=== PATIENT | female | born 1995 | race Caucasian/White ===

== ENCOUNTER 2021-05-14 11:50 | Outpatient (CLI) | payer BC, SELFPAY ==
--- NOTE | 2021-05-14 11:30 | DI.RAD_ITS ---
Exam(s) XR KNEE LT 3V AP,LAT,CHUCKY EXAM: XR KNEE LT 3V AP,LAT,CHUCKY CLINICAL HISTORY: F/U. TECHNIQUE: 2D digital imaging was performed. COMPARISON: No exams were available for comparison FINDINGS: There is no evidence of fracture or prominent joint effusion. No degenerative changes. No patellar displacement. Bone density is normal. IMPRESSION: No significant radiographic findings on these three views of the left knee. DATA REPOSITORY: RADIATION DOSE DELIVERED:
== END 2021-05-14 11:51 | disposition home or self-care (01) ==
LOC: DIORS 11:51
PROVIDERS: PCP Family Medicine; Visit Provider Student in an Organized Health Care Education/Training Program
DX: M25.562 Pain in left knee (principal)
CPT/HCPCS: 73562

== ENCOUNTER 2022-04-13 13:32 | Emergency (ER) | payer OTHER, SELFPAY ==
[2022-04-13 13:35] VITALS: BP 123/73; PULSE 84; RESP 16; TEMP 36.9; O2SAT 100
--- NOTE | 2022-04-13 14:00 | DI.RAD_ITS ---
Exam(s) XR WRIST LT COMPLETE EXAM: XR WRIST LT COMPLETE CLINICAL HISTORY: trauma, left wrist pain. TECHNIQUE: 2D digital imaging was performed of the left wrist. Three images were obtained. PA, obl ique and lateral views were obtained. COMPARISON: No exams were available for comparison FINDINGS: BONES: There is an acute comminuted fracture of the distal left radius with extension into the radioc arpal joint. There is mild displacement and posterior angulation of the fracture. There is also non displaced fracture through the base of the ulnar styloid process. No bony destructive lesion is seen . JOINTS: The carpal bones are normally aligned. SOFT TISSUE: Soft tissue swelling of the wrist. IMPRESSION: Distal left radial and ulnar fractures as described above. DATA REPOSITORY: RADIATION DOSE DELIVERED:
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
--- NOTE | 2022-04-13 14:45 | DI.CT_ITS ---
Exam(s) CT UPPER EXTREMITY LT WO EXAM: CT UPPER EXTREMITY LT WO CLINICAL HISTORY: left wrist pain, trauma. TECHNIQUE: Imaging Protocol: Axial computed tomography images with coronal and sagittal reformatted images were created and reviewed. COMPARISON: No exams were available for comparison FINDINGS: Bones: There is an acute comminuted fracture of the distal radius which extends into the radiocarpal joint. There is mild impaction of the fracture noted. There is also a mildly displaced oblique fra cture through the distal ulna extending into its articular surface. No cellulitic or osteomyelitic c hanges are identified. There is no evidence of joint space narrowing or cystic degeneration seen. No lytic or sclerotic lesions are identified. Soft Tissues: There is soft tissue swelling of the wrist. IMPRESSION: Distal radial and ulnar fractures as described. RADIATION DOSE DELIVERED: 148.57mGy.cm Total DLP 148.57mGy.cm Total DLP DATA REPOSITORY: All CT scans at this facility are submitted to the National Radiology Data Registry (NRDR) Dose Index Registry (DIR) with the [employer] (ACR). RADIATION OPTIMIZATION: All CT scans at this facility use at least one of these dose optimization te chniques: automated exposure control; mA and/or kV adjustment per patient size (includes targeted exa ms where dose is matched to clinical indication); or iterative reconstruction.
--- NOTE | 2022-04-13 15:06 | DI.VRAD_ITS ---
PROCEDURE INFORMATION: Exam: XR Left Wrist Exam date and time: 04/13/2022 2:40 PM Age: 26 years old Clinical indication: Injury or trauma; Fall; Fracture, traumatic injury; Closed fracture; Wrist; Left TECHNIQUE: Imaging protocol: XR Left wrist. Views: 3 or more views. COMPARISON: No relevant prior studies available. FINDINGS: Bones/joints: Comminuted intra-articular transverse fracture of the distal radial metaphysis. There is mild impaction and dorsal angulation of the distal fracture fragments. Small minimally displaced fracture of the ulnar epiphysis. No other acutely displaced fractures are identified. There is no evidence of joint dislocation. No aggressive osseous lesions. Soft tissues: There is soft tissue swelling. IMPRESSION: 1. Comminuted, intra-articular, transverse, and dorsally angulated fracture of the distal radial metaphysis. 2. Small minimally displaced fracture to the ulnar epiphysis. 3. Significant soft tissue swelling. Dictated and Authenticated by: Walter Stone MD. Ordering:MATILDA Sloan MD
[2022-04-13] MEDS: Acetaminophen 500 MG TAB 1000 MG PO (15:45)
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
[2022-04-13] MEDS: Ketorolac 15 MG/ML VIAL IM (17:12)
[2022-04-13 17:43] LABS: Source Nasopharynx
[2022-04-13 17:47] VITALS: BP 115/60; PULSE 71; TEMP 36.9; O2SAT 100
[2022-04-13 18:31] VITALS: BP 110/82; PULSE 60; RESP 18; TEMP 37; O2SAT 99
[2022-04-13 18:35] LABS: COVID-19 PCR Negative (Negative)
== END 2022-04-13 18:29 | disposition home or self-care (01) ==
PROVIDERS: Emergency Provider Emergency Medicine; PCP Family Medicine
DX: S52.92XA Unspecified fracture of left forearm, initial encounter for closed fracture (principal); V19.9XXA Pedal cyclist (driver) (passenger) injured in unspecified traffic accident, initial encounter; Z20.822 Contact with and (suspected) exposure to COVID-19
CPT/HCPCS: 81025; 87635; 96372; 99283; 99284; 73110; 73200; J1885

== ENCOUNTER 2022-04-15 10:48 | Day surgery (SDC) | payer OTHER, SELFPAY ==
[2022-04-15] VITALS (8 sets, daily range): BP systolic 117–137; BP diastolic 75–92; PULSE 58–86; RESP 11–20; TEMP 36.3–37; O2SAT 99–100; BMI 23.5
[2022-04-15] MEDS: Lactated Ringers 1,000 ML 80 ML IV (11:54)
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
--- NOTE | 2022-04-15 12:08 | W.ANESPRE ---
General Info Date of Service Date Performed: 04/15/22 Height: 5 ft 6 in Weight: 66 kg Body Mass Index (BMI): 23.5 Surgical Procedure: Operation Date: 04/15/22 14:25 Proposed Procedure Side Surgeon p Wrist ORIF Distal Radius Left Salvador Garcia MD Meds Allergies and Home Medications Allergies Allergy/AdvReac Type Severity Reaction Status Date / Time onion Allergy Intermediate Hives, Verified 04/15/22 11:20 Swollen Tongue No Known Drug Allergies Allergy Verified 04/14/22 12:02 acetaminophen [From Vicodin] AdvReac Severe Other (See Unverified 04/15/22 11:20 Comment) hydrocodone [From Vicodin] AdvReac Severe Other (See Unverified 04/15/22 11:20 Comment) ibuprofen AdvReac Severe Other (See Unverified 04/15/22 11:20 Comment) mollusks AdvReac Intermediate swelling, Verified 04/15/22 11:20 vomiting, hives Home Medication Medication Instructions Recorded diphenhydramine 25 1 tab PO DAILY PRN 04/14/22 mg-acetaminophen 500 mg tablet acetaminophen 500 mg tablet 500 mg PO Q6H PRN PRN pain #40 tabs 04/15/22 naproxen 500 mg tablet 500 mg PO BID PRN #30 tabs 04/15/22 ondansetron 4 mg disintegrating 4 mg PO Q8H PRN #10 tabs 04/15/22 tablet oxycodone 5 mg tablet 5 mg PO Q6H PRN PRN #8 tabs 04/15/22 Current Visit Medications: Current Medications Generic Name Dose Route Start Last Admin Trade Name Fletcherq PRN Reason Stop Dose Admin Ringer's Solution 1,000 mls @ 80 mls/hr 04/15/22 06:00 04/15/22 11:54 IV 05/14/22 23:59 80 mls/hr INFUSION CINDY Administration Cefazolin Sodium/Dextrose 2 gm in 50 mls @ 100 mls/hr 04/15/22 06:00 Ancef Duplex IVPB 04/15/22 16:00 PREOP CINDY IV Miscellaneous Supplies 1 each 04/15/22 06:00 Iv Access IV 05/14/22 23:59 DIRECTED CNIDY Sodium Chloride 0 ml 04/15/22 06:00 Normal Saline Flush 10 Ml Syr IV 05/14/22 23:59 PRN PRN Sodium Chloride 0 ml 04/15/22 06:00 Normal Saline 10 Ml Vial IJ 05/14/22 23:59 DIRECTED PRN Sterile Water 0 ml 04/15/22 06:00 Water,Injection,Sterile 10 Ml Vial IJ 05/14/22 23:59 DIRECTED PRN PFSH Active Problems Active Problems: Problem Status Onset Code Internal derangement of left knee M23.92 Other intraarticular fracture of lower end of left radius, initial encounter for closed fracture S52.572A Surgical History Surgical History Hx of wisdom tooth extraction Tobacco Smoking/Tobacco Use Status: Never Alcohol Alcohol Intake: current Alcohol intake frequency: a few times a week Alcohol type: beer Substance Use Substance use: Socially Substance use type: marijuana Details: last used 04.14.22 11 am for pain. Vital Signs and Lab Results Vital Signs Most Recent Vital Signs in EMR: Most Recent Vital Signs Temp Pulse Resp BP Pulse Ox 37.0 C 59 L 17 117/92 H 100 04/15/22 10:56 04/15/22 10:56 04/15/22 10:56 04/15/22 10:56 04/15/22 10:56 Lab Results Blood Type / Crossmatch: No Data to Display Complete Blood Count: No Data to Display Complete Metabolic Panel: No Data to Display Liver Function Panel: No Data to Display Coagulation Panel: No Data to Display Cardiac Panel: No Data to Display Arterial Blood Gas: No Data to Display Venous Blood Gas: No Data to Display Pancreas Panel: No Data to Display Thyroid Panel: No Data to Display Infectious Disease: Coronavirus (COVID-19)(PCR) Negative (Negative) 04/13/22 17:38 Coronavirus 2019 Source Nasopharynx 04/13/22 17:38 Blood Cultures: No Data to Display Toxicology Panel: No Data to Display Panel: No Data to Display Anesthesia Assessment and Plan Anesthesia History Personal History: No History of Anesthesia Complications Family History: No Family History of Anesthesia Complications Exercise Tolerance Exercise Tolerance: Metabolic Equivalents>4 Pertinent Negatives Pertinent Negatives: No Symptoms of GERD, No Major Cardiovascular Symptoms or Complaints, No Major Pulmonary Symptoms or Complaints and No History of CVA/TIA Cardiac & Pulmonary Exam Cardiac Exam: Normal S1/S2 Heart Sounds Pulmonary Exam: Clear Bilateral Breath Sounds Implantable Cardiac Device Does patient have a Pacemaker or an ICD?: No Airway Exam Known Difficult Airway: No Mallampati Class: 1 Mouth Opening: Normal (> 3cm) Thyromental Distance: Greater than 3 cm Neck Range of Motion: Full ROM Neck Circumference: Normal Teeth Condition: Normal Dentition ASA Classification ASA Score: ASA 2 Emergency Case?: No NPO Status NPO Status: NPO Clears >2 hours, Solids >8 hours Status Status: Negative HCG Anesthesia Plan Resuscitation Status: Full Code Anesthesia Technique: General Anesthesia Airway Planned: LMA Monitors Used: Standard Monitors
--- NOTE | 2022-04-15 12:10 | PDOC.DSDIS_ITS ---
Discharge Plan Disposition Patient Disposition: HOME Condition: Good Discharge Details Reason For Visit: Left Wrist Fracture Attending Provider: Salvador Garcia Primary Care Provider: Shravan Singleton Home Meds and New Rx's Prescriptions: New acetaminophen 500 mg tablet 500 mg PO Q6H PRN PRN (Reason: pain) Qty: 40 3RF oxycodone 5 mg tablet 5 mg PO Q6H PRN PRNQty: 8 0RF naproxen 500 mg tablet 500 mg PO BID PRNQty: 30 0RF ondansetron 4 mg tablet,disintegrating 4 mg PO Q8H PRNQty: 10 0RF Continued diphenhydramine-acetaminophen 25-500 mg Tablet 1 tab PO DAILY PRN Discharge Instructions Additional Instructions: Wrist Fracture Fixation Discharge Instructions Activity: You should keep the hand/wrist elevated as much as possible for the first few days. You may use the other fingers as tolerated but avoid trying to do too much too soon. You may perform light activities with the splint in place. Dressing/Cast: Your splint should stay in place at all times. Do NOT get it wet. You may loosen the CAIN wrap if you feel it is too tight and then rewrap more loosely. Medications: - You should take Tylenol and Naproxen for baseline pain control. - You have been prescribed a stronger pain medication, Oxycodone, for breakthrough pain. - You also have been prescribed Ondansetron for any nausea. - You may apply ice over the wrist, just double bag so it doesn't get wet. Follow-up: 10-14 days Referrals: Salvador Garcia MD [ [facility] STAFF PHYSICIAN] - Equipment/Supplies: Splint and Sling Activity:: Elevate Remove Dressings/Wound Care:: Do Not Remove Shower/Bathe:: Cover Diet:: As Tolerated Discharge Orders Discharge Orders: Discharge Order (Routine); Ordered 04/15/22 Ordered By: Salvador Garcia DS: Diagnosis Discharge Diagnosis (1) Other intraarticular fracture of lower end of left radius, initial encounter for closed fracture: Status: Acute
[2022-04-15] MEDS: ceFAZolin 2 GM/50 ML BAG IVPB (12:43)
--- NOTE | 2022-04-15 13:00 | DI.RAD_ITS ---
Exam(s) XR WRIST LT COMPLETE EXAM: XR WRIST LT COMPLETE CLINICAL HISTORY: left wrist fracture TECHNIQUE: 2D and realtime digital imaging was performed. COMPARISON: No exams were available for comparison FINDINGS: C-arm fluoroscopy was utilized by Dr. Garcia during open reduction and internal fixation of fractur e of the distal radius. Hard copy shows plate and screw fixation in place in distal radius. IMPRESSION: RADIATION DOSE DELIVERED: jaclyn Delaney= 0.10 mGy Total DLP
[2022-04-15] MEDS: Bupivacaine 0.5% Pres-Free W/EPI 10 ML VIAL (13:17)
--- NOTE | 2022-04-15 14:38 | W.ANESPOSTOP ---
Postoperative Evaluation Date, Time and Location Date Performed: 04/15/22 Time Performed: 14:39 Patient Location: PACU Vital Signs Most Recent Imported Vital Signs: Most Recent Vital Signs Temp Pulse Resp BP Pulse Ox 36.7 C 86 11 L 131/79 99 04/15/22 14:26 04/15/22 14:26 04/15/22 14:26 04/15/22 14:04/15/22 14:26 Pain Score Most Recent Pain Score: Most Recent Pain Score Pain Level 7 04/15/22 10:56 Assessment Mental Status: Awake (Alert & Oriented to Patient Baseline) Airway and Respiratory Function: Patent airway with normal (patient baseline) respiratory exam Cardiovascular Function: Hemodynamically Stable Hydration Status: Adequately Hydrated Nausea & Vomiting: No Nausea or Vomiting Pain: Pt. Denies Any Pain Peripheral Nerve Block: Patient did not receive a nerve block
[2022-04-15] MEDS: Normal Saline 10 ML VIAL IJ (14:39)
[2022-04-15] MEDS: HYDROmorphone 2 MG/ML VIAL IVP ×2 (14:39→14:57)
--- NOTE | 2022-04-15 14:52 | W.PM.OP ---
Date of service: 04/15/22 Time of Service: 13:45 Operative Note Operative Note DATE OF PROCEDURE: 04/15/22 PRE-OP DIAGNOSIS: Left Distal Radius Fracture, Intra-articular POST-OP DIAGNOSIS: same PROCEDURE: Open Reduction and Internal Fixation of Left Distal Radius Fracture, 2 parts SURGEON: Salvador Garcia [employer] PAINTER: Rod Messina ANESTHESIA TYPE: General LMA/ETT Refer to Anesthesia Record ESTIMATED BLOOD LOSS: 10 PATHOLOGY: none sent TOURNIQUET TIME: 35 COMPLICATIONS: None Patient was transported to: PACU Patient's condition: stable Indications: Colette is a 26 year old female who I have seen for a distal radius fracture. Given the deformity, displacement, fracture pattern, intra-articular involvement and effect on daily function, I recommended surgical fixation. I reviewed the risk of the procedure to include bleeding, infection co-pay, stiffness, damage to nerves and vessels, damage to muscles and tendons, malunion, nonunion, hardware prominence, tendon rupture, need for repeat procedures. Despite these risks, the patient elected to proceed. Findings: There is a distal radius fracture which had 2 epiphyseal parts. It was reduced and fixed with a Synthes volar locking plate. Procedure Description: Colette was greeted in the preoperative holding area. The correct patient and site was confirmed and marked. The history and physical was updated. The consent was reviewed the patient and signed. The patient was taken to the operating room and placed in the supine position. All bony problems were well-padded. The left arm was placed onto a radiolucent hand table. A nonsterile tourniquet was placed high up on the arm. Prophylactic antibiotics in the form of cefazolin were administered. The left arm was prepped with ChloraPrep and draped in a standard fashion. A timeout was performed for safe surgery. A standard longitudinal incision was made overlying the flexor carpi radialis tendon starting at the distal wrist crease and moving proximally. The skin was incised sharply. The flexor carpi radialis tendon and its sheath is identified. The sheath was opened. The tendon was moved ulnarly in the floor of the sheath was incised. Blunt dissection the flexor pollicis longus muscle belly and tendon were also made radially exposing the pronator quadratus and the distal radius. The printer quadratus was elevated with an ulnar-based flap. This exposed the volar distal radius and the fracture. A hill elevator was used for full exposure of the volar surface of the distal radius. The primary fracture line was exposed. Using a series of elevators, curettes, and knife, the fracture was fully debrided of any fibrous tissue and callus formation. The volar fracture line had no comminution and was able to be directly reduced. Using gentle traction and fracture manipulation, this reduction was held. Fluoroscopic images were used to confirm adequate reduction. An appropriately sized Synthes volar locking plate was then placed onto the bony surface of the distal radius. Was then held there with a distal radius clamp sandwiching the plate to the distal segment. A single K wire was placed through the distal end. Fluoroscopy was once again used to confirm appropriate positioning of the plate on the distal radius. A reduction K wire was placed into the slotted hole on the shaft but not tightened all the way to allow for manipulation of the distal segment onto the proximal shaft. A single nonlocking screw was placed to the distal portion of the plate securing the plate against the bone of the distal radial metaphysis. This was done at the 8ulnar most hole aiming distally and ulnar to capture the dorsal-ulnar fragment. Once again, the plate was evaluated to make sure it was aligned appropriately. The single screw was also checked to make sure it was in appropriate positioning for trajectory of future screws. The remainder of the screws within the volar locking plate were filled with locking screws. These were made sure not to penetrate the dorsal cortex. Once these were applied the proximal portion of the plate was further reduced down onto the shaft, which further reduce the distal segment. This was held in position with a tightened reduction K wire. Fluoroscopy was then used against confirm appropriate reduction. Nonlocking screws were placed within the 3 shaft screw holes. Final x-rays were obtained which demonstrated adequate reduction and positioning of hardware. The dorsal sunrise view was also obtained to ensure correct sizing of screws. The wound was then thoroughly irrigated. The pronator quadratus was reapproximated with a 0 Vicryl. The tourniquet was released and there was no notable vascular injury. The fingers were warm and well-perfused. The deep dermal layer was closed with a 2-0 Vicryl. The skin was closed with 4-0 nylon. The wound was dressed with Xeroform, 4 x 4's, web roll. A short arm splint was applied. At the end the case all counts are correct. Patient was transferred back to the PACU in stable condition.
== END 2022-04-15 17:40 | disposition home or self-care (01) ==
PROVIDERS: PCP Family Medicine; Visit Provider Student in an Organized Health Care Education/Training Program
PROC: (CPT 25608; principal; 2022-04-15 14:15)
DX: S52.572A Other intraarticular fracture of lower end of left radius, initial encounter for closed fracture (principal); V19.3XXA Pedal cyclist (driver) (passenger) injured in unspecified nontraffic accident, initial encounter; Y93.55 Activity, bike riding
CPT/HCPCS: 25608; 73110; J0131; J0690; J1100; J1200; J1885; J2250; J2405; J3010

== ENCOUNTER 2022-04-27 09:20 | Outpatient (CLI) | payer OTHER, SELFPAY ==
--- NOTE | 2022-04-27 09:00 | DI.RAD_ITS ---
Exam(s) XR WRIST LT COMPLETE EXAM: XR WRIST LT COMPLETE CLINICAL HISTORY: 1ST POST OP ORIF L WRIST. TECHNIQUE: 2D digital imaging was performed. Three views. COMPARISON: CT CT UPPER EXTREMITY LT WO from 04/13/2022 CR,XR XR WRIST LT COMPLETE from 04/13/2022 CR XR WRIST LT COMPLETE from 04/15/2022 FINDINGS: BONES: There has been no change in the fixation plate along the volar aspect of the distal radius. T here has been some healing at the fracture site when compared with the previous exam. Of the the dis wilfredo ulnar fracture site also shows healing and is unchanged in alignment. No acute fracture is prese nt. No bony destructive lesion is seen. JOINTS: The carpal bones are normally aligned. SOFT TISSUE: Normal. IMPRESSION: Healing fractures of the distal radius and ulna. No change in hardware alignment. DATA REPOSITORY: RADIATION DOSE DELIVERED:
== END 2022-04-27 09:21 | disposition home or self-care (01) ==
LOC: DIORS 09:20
PROVIDERS: Visit Provider Physician Assistant
DX: S52.572D Other intraarticular fracture of lower end of left radius, subsequent encounter for closed fracture with routine healing (principal); S52.602D Unspecified fracture of lower end of left ulna, subsequent encounter for closed fracture with routine healing; X58.XXXD Exposure to other specified factors, subsequent encounter
CPT/HCPCS: 73110

== ENCOUNTER 2022-05-27 14:53 | Outpatient (CLI) | payer OTHER, SELFPAY ==
--- NOTE | 2022-05-27 14:15 | DI.RAD_ITS ---
Exam(s) XR WRIST LT COMPLETE EXAM: XR WRIST LT COMPLETE CLINICAL HISTORY: f/u ORIF L WRIST. TECHNIQUE: 2D digital imaging was performed. COMPARISON: CR XR WRIST LT COMPLETE from 04/27/2022 FINDINGS: 3 views Volar fixation plate across the distal radial fracture site appears stable. Fracture line is no long er seen the distal radius. There is a longitudinal fracture line nondisplaced in the distal ulna aga in noted. No significant ulnar variance. Scaphoid unremarkable. Scapholunate distance is normal. No radiographic evidence of hardware loosening and no radiographic evidence of osteomyelitis. IMPRESSION: DATA REPOSITORY: RADIATION DOSE DELIVERED:
== END 2022-05-27 14:54 | disposition home or self-care (01) ==
LOC: DIORS 14:54
PROVIDERS: Visit Provider Student in an Organized Health Care Education/Training Program
DX: S52.572A Other intraarticular fracture of lower end of left radius, initial encounter for closed fracture (principal); X58.XXXA Exposure to other specified factors, initial encounter; S52.692A Other fracture of lower end of left ulna, initial encounter for closed fracture
CPT/HCPCS: 73110